=== PATIENT | male | born 1960 | race Asian ===

== ENCOUNTER 2017-07-11 11:53 | Day surgery (SDC) | payer BC ==
[~2017-07-11] VITALS: Ht 165.1 cm; Wt 71.2 kg
[2017-07-11 13:01] LABS: BILIRUBIN,URINE 1+ (NEGATIVE); CLARITY/URINE CLEAR (CLEAR); COLOR,URINE YELLOW (YELLOW); GLUCOSE,URINE NEGATIVE (NEGATIVE); KETONES,URINE 1+ (NEGATIVE); PROTEIN URINE TRACE (NEGATIVE)
[2017-07-11 13:02] LABS: BLOOD, URINE NEGATIVE (NEGATIVE); LEUKOCYTE ESTERASE ,URINE NEGATIVE (NEGATIVE); NITRITE, URINE NEGATIVE (NEGATIVE); UROBILINOGEN,URINE 0.2 (0.2-1.0)
[2017-07-11 13:17] LABS: HEMATOCRIT 42.9 % (36-54); HEMOGLOBIN 14.3 g/dL (14.0-18.0); LYMPHOCYTES % (AUTO) 3.6 % (20.5-51.5); MEAN CORPUSCULAR HEMOGLOBIN 29 pg (27-31); MEAN CORPUSCULAR HGB CONC 33 % (32-36); MEAN CORPUSCULAR VOLUME 86 fL (79.0-98.0); NEUTROPHILS % (AUTO) 88.7 % (40.0-70.0); PLATELET COUNT (AUTO) 395 K/uL (130-430); RED BLOOD CELL COUNT(AUTO) 4.98 MIL/uL (4.2-6.2); RED CELL DISTRIBUTION WIDTH 11.8 % (9.0-15.0); WHITE BLOOD COUNT (AUTO) 16.7 K/uL (4.8-10.8)
[2017-07-11 13:18] LABS: BASOPHILS # (AUTO) 0.1 K/uL (0.0-0.2); BASOPHILS % (AUTO) 0.3 % (0.0-2.0); EOSINOPHILS # (AUTO) 0.2 K/uL (0.0-0.4); LYMPHOCYTES # (AUTO) 0.6 K/uL (1.0-5.5); MONOCYTES # (AUTO) 1.1 K/uL (0.0-1.0); MONOCYTES % (AUTO) 6.4 % (1.7-9.3); NEUTROPHILS # (AUTO) 14.7 K/uL (1.8-7.7)
[2017-07-11 13:35] LABS: CALCIUM 9.1 mg/dL (8.4-11.0); CREATININE 1.26 mg/dL (0.55-1.30); POTASSIUM 3.2 mmol/L (3.5-5.1)
[2017-07-11 13:41] LABS: ALBUMIN 3.5 g/dL (3.4-4.8); TOTAL BILIRUBIN 0.9 mg/dL (0.0-1.0)
[2017-07-11 13:44] LABS: PROTHROMBIN TIME 10.9 SECS (9.5-12.5)
[2017-07-11 13:45] LABS: INR 1.1 (0.80-1.20)
[2017-07-11] MEDS ORDERED: CEFAZOLIN SOD 1 GM/ ISO 50 ML PREMIX IV ONE (14:15)
[2017-07-11] MEDS ORDERED: NS IRRIG SOLN 1000 ML IR ONE (14:34)
[2017-07-11] MEDS ORDERED: SEVOFLURANE 15 MIN GAS INH ONE (14:34)
[2017-07-11] MEDS ORDERED: fentaNYL CITRATE 250 MCG/5 ML AMP IV ONE (14:34)
[2017-07-11] MEDS ORDERED: KETOROLAC TROMETHAMINE 30 MG VIAL IVP ONE ×2 (14:34→16:00)
[2017-07-11] MEDS ORDERED: MIDAZOLAM HCL 5 MG/5 ML VIAL IVP ONE (14:34)
[2017-07-11] MEDS ORDERED: BUPIVACAINE /PF 0.5% 30 ML VIAL INJ ONE (14:34)
[2017-07-11] MEDS ORDERED: ONDANSETRON HCL 4 MG/2 ML VIAL IVP ONE ×2 (14:34→16:00)
[2017-07-11] MEDS ORDERED: PROPOFOL 200MG/ 20ML VIAL (DIPRIVAN) IV ONE (14:34)
[2017-07-11] MEDS ORDERED: HYDROmorphone 1 MG INJ. 1 MG/ML AMPUL IVP PRN (15:45)
[2017-07-11] MEDS ORDERED: HYDROcodone/ACETAMIN 5-325 MG TAB (NORCO/ VICODIN) PO PRN ×2 (15:45)
[2017-07-11] MEDS ORDERED: D5/0.45 NS 1,000 ML IV SCH (15:45)
[2017-07-11] MEDS ORDERED: MEPERIDINE HCL/PF 25 MG/ML DISP.SYRIN IVP PRN (16:00)
[2017-07-11] MEDS ORDERED: MIDAZOLAM HCL 5 MG/5 ML VIAL IVP PRN (16:00)
[2017-07-11] MEDS ORDERED: fentaNYL CITRATE/PF 100 MCG/2 ML AMP IVP PRN (16:00)
[2017-07-11 18:02] VITALS: BP_SYST 119
== END 2017-07-11 17:45 | disposition home or self-care (01) ==
LOC: SMU 11:53 → SDS 11:53 → UNDOADMIN 11:53 → EDSTATUS 14:55 → SDS 17:45 → UNDODISIN 17:45
PROVIDERS: ATTEND Colon & Rectal Surgery
DX: K61.3 Ischiorectal abscess (principal); Z95.1 Presence of aortocoronary bypass graft; I10 Essential (primary) hypertension; E78.5 Hyperlipidemia, unspecified; M54.12 Radiculopathy, cervical region; I25.119 Atherosclerotic heart disease of native coronary artery with unspecified angina pectoris
CPT/HCPCS: 36415; 46040; 71020; 80053; 81003; 85025; 85610; 85730; 87086; 93005; J0690; J1885; J2250; J2405; J2704; J3010; J3490; J7120